=== PATIENT | male | born 1995 | race African-American/Black ===

== ENCOUNTER 2019-02-15 12:52 | Emergency (ER) | payer OTHER ==
[~2019-02-15] VITALS: Ht 188 cm; Wt 81.8 kg
[2019-02-15 13:37] LABS: HEMATOCRIT 45.5 % (42.0-52.0); HEMOGLOBIN 15.5 g/dl (13.5-17.5); MEAN CORPUSCULAR HGB CONC 34.1 g/dl (32.0-36.5); PLATELET COUNT, AUTOMATED 216 10^3/uL (150-450); RED BLOOD COUNT 5.17 10^6/uL (4.30-6.10); WHITE BLOOD COUNT 16.3 10^3/uL (4.0-10.0)
[2019-02-15 13:57] LABS: BLOOD UREA NITROGEN 10 MG/DL (7-18); CALCIUM LEVEL 8.5 MG/DL (8.5-10.1); CARBON DIOXIDE LEVEL 28 MEQ/L (21-32); CHLORIDE LEVEL 106 MEQ/L (98-107); CREATININE FOR GFR 0.87 MG/DL (0.70-1.30); GLOMERULAR FILTRATION RATE > 60.0 (>60); GLUCOSE, FASTING 86 MG/DL (70-100); POTASSIUM SERUM 3.7 MEQ/L (3.5-5.1); SODIUM LEVEL 139 MEQ/L (136-145)
[2019-02-15] MEDS ORDERED: ISOVUE-370 76% 100ML VIAL (Q9967) As Ordered ONE (14:17)
[2019-02-15 14:47] LABS: ATYPICAL LYMPH 10 % (0-5); EOSINOPHILS 1 % (0-5); LYMPHOCYTES 38 % (16-52); MONOCYTES 11 % (0-8); NEUTROPHILS 38 % (35-75); PLATELET ESTIMATE NORMAL (NORMAL)
[2019-02-15] MEDS ORDERED: AMOX500C PO (15:22)
[2019-02-15] MEDS ORDERED: AMOXICILLIN 500 MG CAP PO ONE (15:30)
[2019-02-15 15:39] VITALS: BP 137/87
--- NOTE | 2019-02-16 06:55 | REP ---
CT SOFT TISSUES NECK: CT soft tissues neck performed following the intravenous administration of 75 mL Isovue 370. Sagittal and coronal reconstruction images are performed. There is enlargement of the adenoids and palatine tonsils. No peritonsillar abscess is seen. Airway is relatively widely patent. Thyroid, submandibular, and parotid glands appear unremarkable. Prominent lymph nodes are seen along the carotid and jugular chains extending down to the supraclavicular regions. They are slightly larger on the left than on the right and have a short axis dimension up to 1.5 cm. These are likely reactive in nature. Mild mucosal thickening is seen in the sphenoid sinuses. IMPRESSION: Enlarged adenoids and palatine tonsils. No peritonsillar abscess. Airway widely patent. Reactive lymphadenopathy more so on the left. Mild mucosal thickening in the sphenoid sinuses. Electronically Signed by Minh Guzman MD 02/16/2019 04:12 P
== END 2019-02-15 15:40 | disposition home or self-care (01) ==
LOC: M ED 12:52
DX: J03.90 Acute tonsillitis, unspecified (principal)
CPT/HCPCS: 36415; 70491; 80048; 85025; 87880; 99284; Q9967

== ENCOUNTER 2019-11-02 22:07 | Emergency (ER) | payer OTHER ==
[~2019-11-02] VITALS: Ht 190.5 cm; Wt 84.9 kg
[~2019-11-02 22:07] MED LIST: AMOX500C PO
[2019-11-03 01:14] LABS: CHLAMYDIA DNA AMPLIFICATION NEGATIVE (NEGATIVE); GC DNA AMPLIFICATION NEGATIVE (NEGATIVE)
[2019-11-03] MEDS ORDERED: CIPR-249 PO (01:24)
[2019-11-03] MEDS ORDERED: CIPROFLOXACIN 500 MG TAB PO ONE (01:30)
[2019-11-03] MEDS ORDERED: PHENAZOPYRIDINE 100 MG TAB PO ONE (01:30)
[2019-11-03 01:35] VITALS: BP 126/66
[2019-11-04] MEDS ORDERED: KETO10TAB PO (17:58)
[2019-11-04] MEDS ORDERED: ONDA4TAB6 PO (17:58)
== END 2019-11-03 01:36 | disposition home or self-care (01) ==
LOC: M ED 22:07
DX: N30.00 Acute cystitis without hematuria (principal)

== ENCOUNTER 2019-11-04 14:54 | Emergency (ER) | payer OTHER ==
[~2019-11-04] VITALS: Ht 188 cm; Wt 85.0 kg
[~2019-11-04 14:54] MED LIST changes: +CIPR-249 PO
[2019-11-04 16:45] LABS: CHLAMYDIA DNA AMPLIFICATION NEGATIVE (NEGATIVE); GC DNA AMPLIFICATION NEGATIVE (NEGATIVE)
[2019-11-04 16:58] LABS: BASO # 0.1 10^3/uL (0.0-0.2); BASO % 1.2 % (0.0-1.0); EOS # 0.2 10^3/uL (0.0-0.5); EOS % 2.9 % (0.0-3.0); HEMATOCRIT 45.6 % (42.0-52.0); HEMOGLOBIN 15.7 g/dl (13.5-17.5); LYMPH # 3.2 10^3/uL (1.5-5.0); LYMPH % 42.1 % (24.0-44.0); MEAN CORPUSCULAR HEMOGLOBIN 30.8 pg (27.0-33.0); MEAN CORPUSCULAR HGB CONC 34.4 g/dl (32.0-36.5); MEAN CORPUSCULAR VOLUME 89.4 fl (80.0-96.0); MONO % 12.6 % (0.0-5.0); NEUTROPHILS # 3.1 10^3/uL (1.5-8.5); NEUTROPHILS % 41.1 % (36.0-66.0); PLATELET COUNT, AUTOMATED 189 10^3/uL (150-450); WHITE BLOOD COUNT 7.6 10^3/uL (4.0-10.0)
[2019-11-04] MEDS ORDERED: ONDA4TAB6 PO (17:58)
[2019-11-04] MEDS ORDERED: KETO10TAB PO (17:58)
[2019-11-04 18:10] VITALS: BP 120/63
--- NOTE | 2019-11-04 18:50 | REP ---
CT abdomen and pelvis without IV or oral contrast: Renal stone protocol. History: Left flank pain. Hematuria. No comparison study. CT findings: Preliminary digital clinical pharmacy coordinator radiograph is unremarkable. Bowel gas pattern is normal. The lung bases are clear. There is no evidence of pleural or pericardial effusion. The liver and the spleen are normal in size and homogeneous in texture. No abnormalities noted in the gallbladder or the pancreas. There is fullness in the renal pelves bilaterally, right greater than left. There is no evidence of intrarenal calculus on either side. No ureteral stone is seen. No bladder calculus is observed. No ureteral dilation is observed on either side. No retroperitoneal mass or adenopathy is seen. No evidence of abdominal wall hernia. No bony destructive lesion is seen. The appendix is not seen but there is no CT evidence of appendicitis or localized inflammation elsewhere in the abdomen. Impression: Extrarenal pelvis configuration of both kidneys. No urinary tract calculus is seen. No hydroureter or bladder calculus is observed. There is a phlebolith in the left pelvis. Electronically Signed by Wilian Arana MD 11/05/2019 07:21 A
== END 2019-11-04 18:12 | disposition home or self-care (01) ==
LOC: M ED 14:54
DX: R10.9 Unspecified abdominal pain (principal); R31.9 Hematuria, unspecified; I87.8 Other specified disorders of veins

== ENCOUNTER → 2019-11-20 | Outpatient (REF) | payer OTHER ==
[~2019-11-20] MED LIST changes: +KETO10TAB PO; +ONDA4TAB6 PO
[2019-11-20 18:46] LABS: APPEARANCE, URINE HAZY (CLEAR); BACTERIA, URINE AUTO NEGATIVE (NEGATIVE); BILIRUBIN, URINE AUTO NEGATIVE (NEGATIVE); BLOOD, URINE BLOOD NEGATIVE (NEGATIVE); COLOR, URINE YELLOW (YELLOW); GLUCOSE, URINE (UA) AUTO NEGATIVE (NEGATIVE); KETONE, URINE AUTO 1+ mg/dL (NEGATIVE); LEUKOCYTE ESTERASE, URINE AUTO NEGATIVE (NEGATIVE); MUCUS, URINE SMALL (NEGATIVE); NITRITE, URINE AUTO NEGATIVE (NEGATIVE); PROTEIN, URINE AUTO 1+ mg/dL (NEGATIVE); RBC, URINE AUTO 3 /HPF (0-3); SPECIFIC GRAVITY URINE AUTO 1.029 (1.002-1.035); SQUAMOUS EPITHELIAL CELL UR AU 0 /HPF (0-6); UROBILINOGEN, URINE AUTO 0.2 mg/dL (0.0-2.0); WBC, URINE AUTO 2 /HPF (0-3)
== END ==
LOC: M SMT 16:56
PROVIDERS: ATTEND Nurse Practitioner Women's Health
DX: R31.9 Hematuria, unspecified (principal)
CPT/HCPCS: 81001; 87086; G0463